=== PATIENT | male | born 1990 | race Caucasian/White ===

== ENCOUNTER 2024-08-30 11:37 | Emergency (ER) | payer SELFPAY ==
[2024-08-30 11:42] VITALS: BP 116/76; PULSE 98; TEMP 36.4; O2SAT 95; BMI 32.5
[2024-08-30 12:39] LABS: Basophils % 0.2 %; Eosinophils # 0.1 10^3/uL (0.0-0.8); Eosinophils % 1.1 %; Hematocrit 50.6 % (37-53); Lymphocytes # 1.5 10^3/uL (0.8-4.8); Mean Corpuscular HGB Conc 32.4 g/dL (30-55); Mean Corpuscular Hemoglobin 30.1 pg (27-33); Mean Platelet Volume 10.2 fL (7.4-10.4); Monocytes # 0.4 10^3/uL (0.2-0.9); Monocytes % 4.6 %; Neutrophils # 6.39 10^3/uL (1.8-7.7); Neutrophils % 75.9 %; Nucleated Red Blood Cells % 0 %; Platelet Count 246 10^3/cmm (157-399); Red Blood Count 5.44 10^6/uL (3.85-5.65); White Blood Count 8.43 10^3/uL (3.29-11.43)
--- NOTE | 2024-08-30 12:45 | CT_ITS ---
WS: [id number] CT ABDOMEN PELVIS TECHNIQUE: Contrast-enhanced CT of the abdomen and pelvis with coronal and sagittal reformatted images. CLINICAL INFORMATION: Abdominal pain COMPARISON: None. DLP: 922.[address] scans at [facility] use at least one of these dose optimization techniques: automated exposure control; mA and/or kV adjustment per patient size (includes targeted exams where dose is matched to clinical indication); or iterative reconstruction. FINDINGS: Small amount of pericolonic LEFT lower quadrant induration about the proximal sigmoid colon with imaging findings suspicious for epiploic appendagitis. Colitis is an additional consideration. Lung bases are well aerated. Slight bibasilar atelectasis. Fatty liver. Normal portal vein and splenic vein. Normal gallbladder. Normal spleen. Small esophageal hernia. Mild pancreatic parenchymal enhancement. Adrenal glands are normal. Normal renal parenchymal enhancement. No hydronephrosis. Celiac and SMA are patent. Tiny fat-containing umbilical hernia. Normal appendix in the RIGHT lower quadrant. No other acute findings. CT/CT abdomen pelvis w con* [id number] IMPRESSION: 1. Small amount of induration in the LEFT lower quadrant with a small ovoid fo cus of encapsulated pericolonic fat suspicious for epiploic appendagitis. Infec tious or inflammatory colitis less likely. 2. Normal appendix. 3. Small esophageal hernia. 4. No other acute findings
--- NOTE | 2024-08-30 12:50 | ED_ITS ---
HPI - Abdominal Pain 2 General: Chief Complaint: Abdominal Pain Stated Complaint: left side abd pain Time Seen by Provider: 08/30/24 12:43 History of Present Illness: 34-year-old man who presents to the [facility] room with left lower quadrant abdominal pain. He says it started about 3 to 4 days ago. He initially had nausea and vomiting and diarrhea. No longer has any vomiting. Still has intermittent sharp left lower quadrant abdominal pain. No known fevers. No chest pain. No shortness of breath. No dysuria. Related Data Previous Rx's ?Medication ?Instructions ?Recorded diclofenac sodium 50 mg 50 mg PO BID PRN pain #14 ta bs 08/30/24 tablet,delayed release hydrocodone 5 mg-acetaminophen 325 1 tab PO Q6H PRN pa in #20 tabs 08/30/24 mg tablet ondansetron 4 mg disintegrating 4 mg PO Q8H PRN nausea and 08/30/24 tablet vomiting #10 tabs Allergies Allergy/AdvReac Type Severity Reaction Status Date / Time No Known Allergies Allergy Verified 08/30/24 11:46 Review of Systems 2 Narrative: Constitutional symptoms: Negative except as documented in HPI. Skin symptoms: Negative except as documented in HPI. Eye symptoms: Negative except as documented in HPI. ENMT symptoms: Negative except as documented in HPI. Respiratory symptoms: Negative except as documented in HPI. Cardiovascular symptoms: Negative except as documented in HPI. Gastrointestinal symptoms: Negative except as documented in HPI. Genitourinary symptoms: Negative except as documented in HPI. Musculoskeletal symptoms: Negative except as documented in HPI. Neurologic symptoms: Negative except as documented in HPI. Psychiatric symptoms: Negative except as documented in HPI. Endocrine symptoms: Negative except as documented in HPI. Physical Exam 2 Narrative: EXAM NARRATIVE: General: Alert, no acute distress. Skin: Warm, dry. Head: Normocephalic, atraumatic. Neck: Supple, trachea midline. Eye: Extraocular movements are intact. Ears, nose, mouth and throat: mucosa moist. Cardiovascular: Regular, Normal peripheral perfusion. Respiratory: Lungs are clear to auscultation, respirations are non-labored, breath sounds are equal, Symmetrical chest wall expansion. Gastrointestinal: Soft, left lower quadrant abdominal pain, Non distended Musculoskeletal: Normal ROM, no deformity. Neurological: Alert and oriented, No focal neurological deficit observed. Psychiatric: Cooperative, appropriate mood & affect. Course 2 Vital Signs: Vital signs: Vital Signs Temperature 97.6 F 08/30/24 11:42 Pulse Rate 95 08/30/24 12:58 Respiratory Rate 16 08/30/24 12:58 Blood Pressure 126/83 08/30/24 12:58 Pulse Oximetry 94 08/30/24 12:58 Oxygen Delivery Me thod Room Air 08/30/24 12:58 MDM - Abdominal Pain Medical Decision Making Medical decision making: Differential diagnosis for a patient who presents with left lower quadrant abdominal pain including but not limited to and based on the above HPI, review of systems and physical exam: Diverticulitis. Constipation Ureterolithiasis. Urinary tract infection. colitis. small bowel obstruction. Crohn's flare. Orders placed to evaluate differential diagnosis based on the above differential, HPI and physical exam Lab Review: Laboratory results were reviewed and interpreted by myself the emergency room physician. No leukocytosis. No anemia. No renal failure. UA negative for infection. CT of the abdomen shows epiploic appendagitis. No other acute findings. Consistent with patient presentation. This was reviewed and interpreted by myself the emergency room physician. I also reviewed the radiology report. I reviewed the patient's medical record. Reexamination: Patient remained stable. No increased work of breathing. No altered mental status. No focal motor deficits. Patient understands findings. Consultation: I spoke with general surgery who agrees with plan of pain control and anti-inflammatories. Assessment and plan: Epiploic appendagitis Viral gastroenteritis ? Toradol in the emergency room - Discharged home - Discussed plan with patient. Answered any questions. - Evaluation and treatment of this problem were appropriate in the emergency setting. Lab Data 08/30/24 12:14 08/30/24 12:14 Labs/Radiology: Radiology Impressions Abdomen/Pelvis CT 08/30/24 12:45 IMPRESSION: 1. Small amount of induration in the LEFT lower quadrant with a small ovoid focus of encapsulated pericolonic fat suspicious for epiploic appendagitis. Infectious or inflammatory colitis less likely. 2. Normal appendix. 3. Small esophageal hernia. 4. No other acute findings Laboratory Results WBC 8.43 10^3/uL (3.29-11.43) 08/30/24 12:14 RBC 5.44 10^6/uL (3.85-5.65) 08/30/24 12:14 Hgb 16.40 g/dL (11.27-16.99) 08/30/24 12:14 Hct 50.6 % (37-53) 08/30/24 12:14 MCV 93.0 fl (82-101) 08/30/24 12:14 MCH 30.1 pg (27-33) 08/30/24 12:14 MCHC 32.4 g/dL (30-55) 08/30/24 12:14 RDW 12.0 % (12.1-15.1) L 08/30/24 12:14 Plt Count 246 10^3/cmm (157-399) 08/30/24 12:14 MPV 10.2 fL (7.4-10.4) 08/30/24 12:14 Neut % (Auto) 75.9 % 08/30/24 12:14 Lymph % (Auto) 18.0 % 08/30/24 12:14 [place] % (Auto) 4.6 % 08/30/24 12:14 Eos % (Auto) 1.1 % 08/30/24 12:14 Baso % (Auto) 0.2 % 08/30/24 12:14 Neut # (Auto) 6.39 10^3/uL (1.8-7.7) 08/30/24 12:14 Lymph # (Auto) 1.5 10^3/uL (0.8-4.8) 08/30/24 12:14 [place] # (Auto) 0.4 10^3/uL (0.2-0.9) 08/30/24 12:14 Eos # (Auto) 0.1 10^3/uL (0.0-0.8) 08/30/24 12:14 Baso # (Auto) 0.0 10^3/uL (0.0-0.1) 08/30/24 12:14 Nucleated RBC % (auto) 0 % 08/30/24 12:14 Nucleated RBCs # 0.0 /100WBC 08/30/24 12:14 Sodium 143 mmol/L (136-145) 08/30/24 12:14 Potassium 4.0 mmol/L (3.5-5.1) 08/30/24 12:14 Chloride 102 mmol/L (98-107) 08/30/24 12:14 Carbon Dioxide 29 mmol/L (22-29) 08/30/24 12:14 Anion Gap 16.0 (5-19) 08/30/24 12:14 BUN 12 mg/dL (6-20) 08/30/24 12:14 Creatinine 0.8 mg/dL (0.7-1.2) 08/30/24 12:14 GFR Calculation 111.3 mL/min (90-130) 08/30/24 12:14 Glucose 91 mg/dL (65-115) 08/30/24 12:14 Calculated Osmolality 295 mOsm/kg (285-295) 08/30/24 12:14 Lactic Acid 1.0 mmol/L (0.5-2.2) 08/30/24 12:14 Calcium 9.3 mg/dL (8.5-10.5) 08/30/24 12:14 Total Bilirubin 0.4 mg/dL (0.15-1.2) 08/30/24 12:14 AST 20 U/L (0-40) 08/30/24 12:14 ALT 26 U/L (0-41) 08/30/24 12:14 Alkaline Phosphatase 104 U/L (40-130) 08/30/24 12:14 C-Reactive Protein 4.5 mg/L (0.0-4.9) 08/30/24 12:14 Total Protein 7.2 g/dL (6.6-8.7) 08/30/24 12:14 Albumin 4.5 g/dL (3.5-5.2) 08/30/24 12:14 Globulin 2.7 g/dL (1.3-4.6) 08/30/24 12:14 Lipase 24 U/L (13-60) 08/30/24 12:14 Urine Color Yellow (Yellow) 08/30/24 12:55 Urine Appearance Clear (CLEAR) 08/30/24 12:55 Urine pH 7.5 (5-7) 08/30/24 12:55 Ur Specific [place] 1.026 (1.005-1.030) 08/30/24 12:55 Urine Protein Trace (Negative) A 08/30/24 12:55 Urine Glucose (UA) Negative (Normal) 08/30/24 12:55 Urine Ketones Trace (Negative) 08/30/24 12:55 Urine Blood Negative (Negative) 08/30/24 12:55 Urine Nitrate Negative (Negative) 08/30/24 12:55 Urine Bilirubin Negative (Negative) 08/30/24 12:55 Urine Urobilinogen 1.0 mg/dL (Negative) 08/30/24 12:55 Ur Leukocyte Esterase Negative (Negative) 08/30/24 12:55 Urine RBC 0-2 /hpf (0-2) 08/30/24 12:55 Urine WBC 0-5 /hpf (0-5) 08/30/24 12:55 Ur Squamous Epith Cells 0-5 /hpf (0-5) 08/30/24 12:55 Amorphous Sediment Not Reportable 08/30/24 12:55 Urine Bacteria None seen /hpf (NONE) 08/30/24 12:55 Hyaline Casts 1.21 /lpf 08/30/24 12:55 All radiology interpretation(s) finalized by discharge Discharge Plan Discharge Patient Disposition: Home Clinical Impression: Epiploic appendagitis, Viral gastroenteritis Condition: Stable Prescriptions: New hydrocodone-acetaminophen 5-325 mg tablet 1 tab PO Q6H PRN (Reason: pain) Qty: 20 0RF diclofenac sodium 50 mg tablet,delayed release (DR/EC) 50 mg PO BID PRN (Reason: pain) Qty: 14 0RF ondansetron 4 mg tablet,disintegrating 4 mg PO Q8H PRN (Reason: nausea and vomiting) Qty: 10 0RF Discharge Orders: Discharge ED (Routine); Ordered 08/30/24 Ordered By: Oksana Duncan Discharge Diet: Advance as tolerated Discharge Activity: Increase activity as tolerated Patient Instructions: Epiploic Appendagitis (ED), Opioid Safety, Pain Management Activity Restrictions/Additional Instructions: Thank you for choosing [facility] for your healthcare needs today. You have been screened and evaluated and felt safe for discharge. Health conditions do change or evolve sometimes and as such it is important that you follow up with your Primary Doctor to be re checked, 3-5 days is a general good time frame for follow up. You are always welcome to return to the ED for re assessment if your symptoms are worsening or you have new concerns Print Language: Grenadian Coding Level of Care Code ED General Manager [employer] for Saritha Keane
[2024-08-30 12:58] VITALS: BP 126/83; PULSE 95; RESP 16; O2SAT 94
[2024-08-30 13:01] LABS: Alanine Aminotransferase 26 U/L (0-41); Albumin Level 4.5 g/dL (3.5-5.2); Alkaline Phosphatase 104 U/L (40-130); Aspartate Amino Transferase 20 U/L (0-40); Blood Urea Nitrogen 12 mg/dL (6-20); C Reactive Protein 4.5 mg/L (0.0-4.9); Calcium 9.3 mg/dL (8.5-10.5); Carbon Dioxide 29 mmol/L (22-29); Chloride 102 mmol/L (98-107); Creatinine Clr Calc Pharmacy 167.3822; Globulin 2.7 g/dL (1.3-4.6); Glomerular Filtration Rate 111.3 mL/min (90-130); Glucose 91 mg/dL (65-115); Lipase 24 U/L (13-60); Osmolality Calculated 295 mOsm/kg (285-295); Sodium 143 mmol/L (136-145); Total Bilirubin 0.4 mg/dL (0.15-1.2); Total Protein 7.2 g/dL (6.6-8.7)
[2024-08-30 13:21] LABS: Bilirubin Urine Negative (Negative); Blood Urine Negative (Negative); Glucose Urine UA Negative (Normal); Ketones Urine Trace (Negative); Leukocyte Esterase Urine Negative (Negative); Nitrate Urine Negative (Negative); Protein Urine Trace (Negative); Specific Gravity, Urine 1.026 (1.005-1.030); Urine Appearance Clear (CLEAR); Urine Color Yellow (Yellow); pH Urine 7.5 (5-7)
[2024-08-30 13:26] LABS: Bacteria Urine None Seen /hpf; Hyaline Casts Urine 1.21 /lpf; RBC Urine 0-2 /hpf (0-2); Squamous Epithelial Cell Urine 0-5 /hpf (0-5); WBC Urine 0-5 /hpf (0-5)
[2024-08-30] MEDS: iohexol 350 mg/mL 500 mL Btl (per mL) IV (13:38)
[2024-08-30 13:49] LABS: Add Urine Culture? No
[2024-08-30] MEDS: ketorolac 30 mg/mL INJ IVP (14:53)
[2024-08-30 15:05] VITALS: BP 120/77; PULSE 91; RESP 16; O2SAT 95
== END 2024-08-30 15:01 | disposition home or self-care (01) ==
PROVIDERS: Emergency Provider Emergency Medicine
DX: K63.89 Other specified diseases of intestine (principal); A08.4 Viral intestinal infection, unspecified
CPT/HCPCS: 36415; 74177; 80053; 81001; 83605; 83690; 85025; 86140; 96374; 99285; J1885